=== PATIENT | female | born 1940 | race Caucasian/White ===

== ENCOUNTER 2018-07-11 16:16 | Outpatient (REF) | payer MEDICARE, SELFPAY ==
[2018-07-11 21:39] LABS: ALT 22 U/L (12-78); AST 18 U/L (15-37); Alkaline Phosphatase 88 U/L (46-116); Anion Gap 5.9 mmol/L (3-11); BUN 17 mg/dL (7-18); Bilirubin, Total 0.4 mg/dL (0.2-1.0); CO2 30.1 mmol/L (21.0-32.0); CREATININE 0.76 mg/dL (0.55-1.02); Calcium 8.8 mg/dL (8.5-10.1); Chloride 95 mmol/L (98-107); Glucose 93 mg/dL (70-100); Potassium 3.6 mmol/L (3.5-5.1); Sodium 131 mmol/L (136-145); Total Protein 6.7 g/dL (6.4-8.2); Vitamin B12 480 pg/mL (193-986)
[2018-07-13 07:30] LABS: Vitamin D 25 Total 37.5 ng/ml (30-100)
== END 2018-07-11 16:36 ==
LOC: NCHCN 16:16
PROVIDERS: PCP Nurse Practitioner Family; Referring Provider Nurse Practitioner Family; Visit Provider Nurse Practitioner Family
DX: F13.20 Sedative, hypnotic or anxiolytic dependence, uncomplicated (principal); R51 Headache; R10.9 Unspecified abdominal pain; I10 Essential (primary) hypertension; F10.10 Alcohol abuse, uncomplicated; M85.80 Other specified disorders of bone density and structure, unspecified site
CPT/HCPCS: 80053; 82306; 82607

== ENCOUNTER 2018-07-17 07:34 | Outpatient (CLI) | payer MEDICARE, SELFPAY ==
--- NOTE | 2018-07-17 07:59 | DI.US_ITS ---
SYMPTOM/DIAGNOSIS: ABD PAIN, R10.9 ABDOMEN ULTRASOUND: Routine examination was performed. Comparison CT scan is 07/05/09. The aorta and IVC are unremarkable. The liver is normal in size. No hepatic mass is seen. The portal vein shows normal flow. The gallbladder is negative. No stones or sludge are seen. No gallbladder wall thickening or pericholecystic fluid is present. The common duct is within normal limits at .5 cm. The pancreas, kidneys and spleen are unremarkable. Incidental note is made of a 1.8 cm. cyst in the mid pole of the left kidney. IMPRESSION: Negative abdomen ultrasound.
== END 2018-07-17 07:54 ==
PROVIDERS: PCP Nurse Practitioner Family; Visit Provider Nurse Practitioner Family
DX: R10.9 Unspecified abdominal pain (principal)
CPT/HCPCS: 76700

== ENCOUNTER → 2018-07-26 14:08 | Outpatient (BNVA) | payer MEDICARE, SELFPAY | PROVIDERS: Visit Provider Psychiatry & Neurology Neurology | DX: R41.82 Altered mental status, unspecified (principal); G62.9 Polyneuropathy, unspecified; G31.84 Mild cognitive impairment of uncertain or unknown etiology; I10 Essential (primary) hypertension | CPT/HCPCS: 99205; 99214 ==

== ENCOUNTER 2018-08-10 11:10 | Outpatient (CLI) | payer MEDICARE, SELFPAY ==
[2018-08-10 11:58] LABS: Hemoglobin A1C 5.6 % (4.5-6.2)
[2018-08-10 13:09] LABS: ESR 8 MM/HR (0-30)
[2018-08-11 11:38] LABS: Albumin 65.3 % (55.8-66.1); Total Protein 5.9 g/dl (6.3-8.2)
== END 2018-08-10 11:30 ==
PROVIDERS: PCP Nurse Practitioner Family; Visit Provider Psychiatry & Neurology Neurology
DX: G62.89 Other specified polyneuropathies (principal)
CPT/HCPCS: 36415; 85652; 83036; 84165

== ENCOUNTER 2018-08-14 01:58 | Outpatient (CLI) | payer MEDICARE, SELFPAY ==
--- NOTE | 2018-09-06 10:54 | ZIOP_ITS ---
ZIO Patch Report DATE OF DICTATION September 06, 2018 STUDY INDICATION TIA. REQUESTING PROVIDER Ny Loving M.D. FINDINGS The patient was monitored for 13 days and 18 hours. COMMENTS The predominant underlying rhythm was sinus rhythm. Average heart rate in sinus rhythm 58 beats per minute, range 41 to 96 beats per minute. There was rare ectopy. There were 23 episodes of supraventricular tachycardia, average heart rate 111 beats per minute, range 76 to 154 beats per minute. The longest episode lasted 12 beats. There were no pauses greater than 3 seconds. There was no higher degree heart block. There was 1 patient event that correlated with normal sinus rhythm. FINAL INTERPRETATION Bursts of asymptomatic supraventricular tachycardia. Jeffrey Kamara M.D. NICOLETTE/onofre T-09/06/2018
--- NOTE | 2018-09-12 16:32 | ZIOP_ITS ---
DATE OF DICTATION: September 12, 2018 STUDY INDICATIONS: Transient ischemic attack. REQUESTING PROVIDER: Ny Loving M.D. FINDINGS: The patient was monitored for 13 days and 18 hours. The predominant underlying rhythm was sinus rhythm. Average heart rate in sinus rhythm 58 bpm, range 41-96 bpm. There was rare ectopy. There were 23 atrial runs, average heart 111 bpm, range 76-154 bpm. The l ongest episode lasted 12 beats. There were no pauses greater than 3 seconds. There was no high degree heart block. There was one patient event that correlated with normal sinus rhythm. FINAL INTERPRETATION: Minor atrial tachyarrhythmias, asymptomatic.
== END 2018-08-14 02:18 ==
PROVIDERS: PCP Nurse Practitioner Family; Visit Provider Psychiatry & Neurology Neurology
DX: G45.9 Transient cerebral ischemic attack, unspecified (principal); I47.1 Supraventricular tachycardia
CPT/HCPCS: 93225

== ENCOUNTER 2018-08-16 01:02 | Outpatient (CLI) | payer MEDICARE, SELFPAY ==
--- NOTE | 2018-08-16 10:35 | MERGE_ITS ---
*[facility]* *[facility]* [address] [place] [address] Date of study: 08/16/2018 Transthoracic Echocardiography M-mode, complete 2D, complete spectral Doppler, and color Doppler *STUDY CONCLUSIONS* Summary: 1. Left ventricle: The cavity size was normal. Wall thickness was normal. Systolic function was normal. The estimated ejection fraction was 60-65%. Wall motion was normal; there were no regional wall motion abnormalities. 2. Aortic valve: Trileaflet; mildly thickened leaflets. There was mild regurgitation. 3. Aorta: The visible aorta was non-diseased. 4. Mitral valve: There was mild regurgitation. 5. Right ventricle: The cavity size was normal. Wall thickness was normal. Systolic function was normal. 6. Pericardium, extracardiac: Trace pericardial effusion was identified posterior to the heart. *PATIENT PRESENTATION* Height: 160cm ((63in) ) S/D Pressure: 115 / 64 Weight: 59kg ((129.7lb) ) BSA: 1.63m^2 Test start time: 10:45 AM. Test stop time: 11:40 AM. PERFORMING Unknown PERFORMING [facility] ORDERING Ny Loving REFERRING Ny Loving TRACTOR ENGINE MECHANIC RT Daily (R)(ELIER), DEMETRIUS *PROCEDURE DATA* Procedure information: This study was interpreted by [facility]. Pertinent images and digital data are archived for permanent storage and are available for subsequent review. No prior study was available for comparison. Study status: Routine. Transthoracic echocardiography. M-mode, complete 2D, complete spectral Doppler, and color Doppler. A Transthoracic Echocardiogram was performed. Scanning was performed from the parasternal, apical, subcostal, and suprasternal notch acoustic windows. Images were obtained using an [id number] cardiac ultrasound machine. Study completion: The patient tolerated the procedure well. There were no complications. History: PMH: Tia. Aphasia. *CARDIAC ANATOMY* Left ventricle: The cavity size was normal. Wall thickness was normal. Systolic function was normal. The estimated ejection fraction was 60-65%. Wall motion was normal; there were no regional wall motion abnormalities. Diastolic parameters were normal for age. Aortic valve: Trileaflet; mildly thickened leaflets. Mobility was not restricted. Doppler: Transvalvular velocity was within the normal range. There was no stenosis. There was mild regurgitation. VTI ratio of LVOT to aortic valve: 0.84. Valve area (VTI): 2.8cm^2. Indexed valve area (VTI): 1.7cm^2/m^2. Peak velocity ratio of LVOT to aortic valve: 0.71. Valve area (Vmax): 2.4cm^2. Indexed valve area (Vmax): 1.4cm^2/m^2. Mean velocity ratio of LVOT to aortic valve: 0.58. Valve area (Vmean): 1.9cm^2. Indexed valve area (Vmean): 1.2cm^2/m^2. Mean gradient (S): 2.5mm Hg. Peak gradient (S): 4.1mm Hg. Aorta: The visible aorta was non-diseased. Aortic root: The aortic root was normal in size. Ascending aorta: The ascending aorta was normal in size. Mitral valve: Structurally normal valve. Mobility was not restricted. Doppler: Transvalvular velocity was within the normal range. There was no evidence for stenosis. There was mild regurgitation. Valve area by pressure half-time: 3.9cm^2. Indexed valve area by pressure half-time: 2.4cm^2/m^2. Peak gradient (D): 2.7mm Hg. Left atrium: The atrium was normal in size. Right ventricle: The cavity size was normal. Wall thickness was normal. Systolic function was normal. Pulmonic valve: Structurally normal valve. Doppler: Transvalvular velocity was within the normal range. There was no evidence for stenosis. There was trivial regurgitation. Peak gradient (S): 1.6mm Hg. Tricuspid valve: Structurally normal valve. Doppler: Transvalvular velocity was within the normal range. There was no evidence for stenosis. There was mild regurgitation. Pulmonary artery: Pulmonary systolic pressure was within the normal range, in the range of 25mm Hg to 30mm Hg. Right atrium: The atrium was normal in size. Pericardium: Trace pericardial effusion was identified posterior to the heart. Systemic veins: Inferior vena cava: Well visualized. The vessel was patent and normal in size. The respirophasic diameter changes were in the normal range (greater than or equal to 50%). Baseline ECG: Bradycardia. Measurements Left ventricle Value Reference LV ID, ED, PLAX 4.3 cm 3.5 - 6.0 LV ID, ES, PLAX 3.2 cm 2.1 - 4.0 LV PW thickness, ED, PLAX 1.0 cm LV end-diastolic volume, 1-p A2C 77 ml LV ejection fraction, 1-p A2C 59 % LV end-diastolic volume, 1-p A4C 121 ml LV ejection fraction, 1-p A4C 68 % LV e', lateral 0.086 m/sec LV E/e', lateral 10 LV e', medial 0.069 m/sec LV E/e', medial 12 LV e', average 0.077 m/sec LV E/e', average 11 Ventricular septum Value Reference IVS thickness, ED, PLAX 0.9 cm LVOT Value Reference LVOT ID, A-P 2.1 cm LVOT area 3.3 cm^2 LVOT peak velocity, S 0.71 m/sec LVOT mean velocity, S 0.45 m/sec LVOT VTI, S 22.8 cm LVOT peak gradient, S 2 mm Hg LVOT mean gradient, S 0.9 mm Hg Stroke volume (SV), LVOT DP 76 ml Stroke index (SV/bsa), LVOT DP 47 ml/m^2 Aortic valve Value Reference Aortic valve peak velocity, S 1 m/sec Aortic valve mean velocity, S 0.77 m/sec Aortic valve VTI, S 27.0 cm Aortic mean gradient, S 2.5 mm Hg Aortic peak gradient, S 4.1 mm Hg VTI ratio, LVOT/AV 0.84 Aortic valve area, VTI 2.8 cm^2 Velocity ratio, peak, LVOT/AV 0.71 Aortic valve area, peak velocity 2.4 cm^2 Velocity ratio, mean, LVOT/AV 0.58 Aortic valve area, mean velocity 1.9 cm^2 Aortic valve area/bsa, mean velocity 1.2 cm^2/m^2 Aorta Value Reference Aortic root ID, ED 3.2 cm Ascending aorta ID, A-P, S 3.4 cm RVOT Value Reference RVOT VTI, S 16.7 cm Left atrium Value Reference LA ID, A-P, ES 2.6 cm LA ID/bsa, A-P 1.6 cm/m^2 <=2.2 LA area, ES, A4C 16.3 cm^2 8.8 - 23.4 LA volume/bsa, ES, 1-p A4C 25 ml/m^2 LA/aortic root ratio 0.8 Mitral valve Value Reference Mitral E-wave peak velocity 0.82 m/sec Mitral A-wave peak velocity 0.67 m/sec Mitral deceleration time 195 ms 150 - 230 Mitral pressure half-time 56 ms Mitral peak gradient, D 2.7 mm Hg Mitral E/A ratio, peak 1.23 Mitral valve area, PHT, DP 3.9 cm^2 Tricuspid valve Value Reference Tricuspid regurg peak velocity 2.5 m/sec Tricuspid peak RV-RA gradient 25.9 mm Hg Right atrium Value Reference RA area, ES, A4C 16 cm^2 8.3 - 19.5 Pulmonic valve Value Reference Pulmonic peak gradient, S 1.6 mm Hg Legend: (L) and (H) jeannette values outside specified reference range. I have personally reviewed the images and have reviewed and edited the reported findings. Electronically signed by Jeffrey Kamara 08/16/2018 13:01
== END 2018-08-16 01:22 ==
PROVIDERS: PCP Nurse Practitioner Family; Visit Provider Psychiatry & Neurology Neurology
DX: G45.9 Transient cerebral ischemic attack, unspecified (principal); I08.0 Rheumatic disorders of both mitral and aortic valves
CPT/HCPCS: 93306

== ENCOUNTER 2018-09-06 09:22 | Outpatient (CLI) | payer MEDICARE, SELFPAY | END 2018-09-06 09:42 | PROVIDERS: PCP Nurse Practitioner Family; Referring Provider Nurse Practitioner Family; Visit Provider Student in an Organized Health Care Education/Training Program | DX: G45.9 Transient cerebral ischemic attack, unspecified (principal); I47.1 Supraventricular tachycardia | CPT/HCPCS: 0298T ==

== ENCOUNTER → 2018-09-18 09:40 | Outpatient (BNVA) | payer MEDICARE, SELFPAY | PROVIDERS: PCP Nurse Practitioner Family; Visit Provider Psychiatry & Neurology Neurology | DX: G62.9 Polyneuropathy, unspecified (principal); G31.84 Mild cognitive impairment of uncertain or unknown etiology; R00.0 Tachycardia, unspecified; G43.009 Migraine without aura, not intractable, without status migrainosus; I10 Essential (primary) hypertension | CPT/HCPCS: 99214 ==

== ENCOUNTER 2018-09-28 02:38 | Outpatient (CLI) | payer MEDICARE, SELFPAY ==
--- NOTE | 2018-10-02 10:05 | HOLTER_ITS ---
DATE OF DICTATION: October 02, 2018 Baseline rhythm sinus. Rare single PAC. Four bursts of SVT, longest 5-beat duration, fastest 132 bpm. No atrial fibrillati on. Occasional ectopic atrial focus. Rare single PVC. No VT. Nocturnal heart rates as low as 35-40 bpm, sinus bradycardia. Symptoms: Wooshing sensation noted once during sinus rhythm 69 bpm. Left congregation noted four times during sinus rhythm, 54-59 bpm. Front of head noted four times during sinus rhythm, 53-57 bpm. Headache noted four times during sinus rhythm, 49-61 bpm. Dizziness noted twice during sinus rhythm, 57, 60 bpm. Average heart rate 55 bpm, range 47-79 bpm.
== END 2018-09-28 02:58 ==
PROVIDERS: PCP Nurse Practitioner Family; Visit Provider Psychiatry & Neurology Neurology
DX: G45.9 Transient cerebral ischemic attack, unspecified (principal); R00.1 Bradycardia, unspecified
CPT/HCPCS: 93225

== ENCOUNTER 2018-09-30 14:53 | Outpatient (CLI) | payer MEDICARE, SELFPAY | END 2018-09-30 15:13 | PROVIDERS: PCP Nurse Practitioner Family; Visit Provider Psychiatry & Neurology Neurology | DX: G45.9 Transient cerebral ischemic attack, unspecified (principal); R00.1 Bradycardia, unspecified | CPT/HCPCS: 93226 ==

== ENCOUNTER 2018-10-02 09:10 | Outpatient (CLI) | payer MEDICARE, SELFPAY | END 2018-10-02 09:30 | PROVIDERS: PCP Nurse Practitioner Family; Referring Provider Psychiatry & Neurology Neurology; Visit Provider Internal Medicine Interventional Cardiology | DX: G45.9 Transient cerebral ischemic attack, unspecified (principal); R00.1 Bradycardia, unspecified | CPT/HCPCS: 93227 ==

== ENCOUNTER → 2018-11-29 09:37 | Outpatient (BNVA) | payer MEDICARE, SELFPAY | PROVIDERS: PCP Nurse Practitioner Family; Visit Provider Student in an Organized Health Care Education/Training Program | DX: R12 Heartburn (principal); I08.0 Rheumatic disorders of both mitral and aortic valves; I47.1 Supraventricular tachycardia; I10 Essential (primary) hypertension; G45.9 Transient cerebral ischemic attack, unspecified | CPT/HCPCS: 99204; 99215 ==

== ENCOUNTER 2018-11-30 09:29 | Outpatient (CLI) | payer MEDICARE, SELFPAY ==
--- NOTE | 2018-11-30 09:20 | DI.RAD_ITS ---
SYMPTOM/DIAGNOSIS: PAIN RIGHT SHOULDER: The patient is status post right shoulder prosthesis. The alignment appears satisfactory. No abnormal bony lucencies or acute fractures are seen.
== END 2018-11-30 09:49 ==
PROVIDERS: PCP Nurse Practitioner Family; Referring Provider Nurse Practitioner Family; Visit Provider Orthopaedic Surgery
DX: M25.511 Pain in right shoulder (principal); Z96.611 Presence of right artificial shoulder joint; Z47.1 Aftercare following joint replacement surgery
CPT/HCPCS: 99214; 73030

== ENCOUNTER 2018-12-06 11:50 | Day surgery (SDC) | payer MEDICARE, SELFPAY ==
--- NOTE | 2018-12-06 11:46 | DI.RAD_ITS ---
SYMPTOMS/DIAGNOSIS: RIGHT SHOULDER PAIN S/P TOTAL SHOULDER REPLACEMENT C-ARM FLUOROSCOPY OF THE RIGHT SHOULDER: Fluoroscopy Time: 4.4 sec Fluoroscopy was provided for Dr. He for guidance with shoulder aspiration. A right shoulder prosthesis is noted. Please see procedure note for details.
[2018-12-06 12:00] VITALS: BP 104/70; PULSE 59; RESP 16; TEMP 36; O2SAT 95
--- NOTE | 2018-12-06 13:28 | W.PM.DSUDISC ---
Discharge Plan Disposition Patient Disposition: HOME Condition: Good Discharge Details Reason For Visit: aspiration R shoulder Attending Provider: Bautista He Primary Care Provider: Marilee Orosco Home Meds and New Rx's Prescriptions: Continued melatonin 3 mg tablet 3 mg PO HS PRNRF: 0 hydroxyzine HCl 25 mg tablet 25 mg PO TID-QID PRNRF: 0 paroxetine HCl [Paxil] 20 mg tablet 20 mg PO DAILY RF: 0 gabapentin 100 mg capsule See Rx Instructions PO Q8H PRN Qty: 90 RF: 3 trazodone 50 MG tablet 1 - 2 tab PO HS RF: 0 thiamine mononitrate (vit B1) [Vitamin B-1 (mononitrate)] 100 MG tablet 100 mg PO TID Qty: 90 RF: 0 hydrochlorothiazide 25 mg tablet 12.5 mg PO DAILY RF: 0 metoprolol succinate 50 mg tablet extended release 24 hr 25 mg PO DAILY RF: 0 Discharge Instructions Additional Instructions: Rest R shoulder for next 48 hours then gradually resume activities as tolerated. Follow up with in one month. Stand Alone Forms: Keny Lemos (DSU) Activity:: Activity as Tolerated Diet:: As Tolerated Discharge Orders Discharge Orders: Discharge Order (Routine); Ordered 12/06/18 Ordered By: Bautista He DS: Diagnosis Discharge Diagnosis (1) Right shoulder pain: Status: Acute
--- NOTE | 2018-12-06 18:30 | ROE_ITS ---
DATE OF PROCEDURE: December 06, 2018 PREOPERATIVE DIAGNOSIS: Painful right total shoulder. POSTOPERATIVE DIAGNOSIS: Painful right total shoulder. PROCEDURE: Aspiration of right shoulder under C-arm fluoroscopic guidance. SURGEON: Bautista He M.D. ANESTHESIA: Local. INDICATIONS: This is a 77-year-old white female who underwent a right total shoulder replacement in [place] in 2015. She claims that she has had ongoing chronic pain in her right shoulder since her sanaz mariann. She has a total shoulder replacement on the left side performed by me in 2009. This shoulder is pain free and functioning well. As a first step in working up the etiology of her shoulder pain, I recommended aspiration of her joint to try to obtain fluid for analysis and culture. Her inflammat ory markers have been normal so far. The risks and complications of the procedure were explained to the patient in detail preoperatively. PROCEDURE: The patient was taken to the Operating Room on 12/06/18. She was placed supine on the oper ating table. The shoulder joint was localized using a ring forceps and the C-arm image intensifier. I then prepped the skin in the marked area with alcohol and an 18-gauge spinal needle was inserted i nto the shoulder joint. The C-arm image intensifier confirmed that the needle was in the joint. I a ttempted aspiration with no fluid obtained. I tried moving the needle in several places and still di d not obtain any fluid for analysis. I then injected into her shoulder 15 cc of 0.5% Marcaine with e pinephrine solution and removed the needle. A Band-Aid was applied to the puncture wound. The patie nt tolerated the procedure well. She was discharged back to the [facility] in good condition. The patient was told to rest her shoulder for 48 hours and then start gradual resumption of activitie s within tolerance of pain. She will follow up in my office in two weeks.
== END 2018-12-06 13:37 | disposition home or self-care (01) ==
PROVIDERS: PCP Nurse Practitioner Family; Visit Provider Orthopaedic Surgery
PROC: (CPT 20610; principal; 2018-12-06 13:00)
DX: T84.84XA Pain due to internal orthopedic prosthetic devices, implants and grafts, initial encounter (principal); Z96.611 Presence of right artificial shoulder joint; G89.28 Other chronic postprocedural pain; M25.511 Pain in right shoulder
CPT/HCPCS: 20610; 77002; 73030

== ENCOUNTER → 2018-12-14 14:43 | Outpatient (BNVA) | payer MEDICARE, SELFPAY | PROVIDERS: PCP Nurse Practitioner Family; Visit Provider Psychiatry & Neurology Neurology | DX: G62.1 Alcoholic polyneuropathy (principal); G31.84 Mild cognitive impairment of uncertain or unknown etiology; R00.0 Tachycardia, unspecified; G43.009 Migraine without aura, not intractable, without status migrainosus; I10 Essential (primary) hypertension | CPT/HCPCS: 99214 ==

== ENCOUNTER → 2019-02-05 08:08 | Outpatient (BNVA) | payer MEDICARE, SELFPAY | PROVIDERS: PCP Nurse Practitioner Family; Visit Provider Psychiatry & Neurology Neurology | DX: G62.9 Polyneuropathy, unspecified (principal); G31.84 Mild cognitive impairment of uncertain or unknown etiology; R00.0 Tachycardia, unspecified; G43.009 Migraine without aura, not intractable, without status migrainosus; G43.109 Migraine with aura, not intractable, without status migrainosus; I10 Essential (primary) hypertension | CPT/HCPCS: 99214 ==